=== PATIENT | male | born 1965 | race Hispanic/Latino ===

== ENCOUNTER 2020-06-14 20:39 | Emergency (ER) | payer SELFPAY ==
[2020-06-14] MEDS ORDERED: HYDROcodone/Acetaminophen 5/325 mg Tablet ONE (21:08)
== END 2020-06-14 22:45 | disposition home or self-care (01) ==
LOC: NAV ERS 20:39
DX: S43.401A Unspecified sprain of right shoulder joint, initial encounter (principal); M23.91 Unspecified internal derangement of right knee; M54.5 Low back pain; Z79.899 Other long term (current) drug therapy; X50.1XXA Overexertion from prolonged static or awkward postures, initial encounter
CPT/HCPCS: 72131